=== PATIENT | male | born 1970 | race Caucasian/White ===

== ENCOUNTER 2022-03-02 07:06 | Day surgery (SDC) | payer BC ==
[2022-02-28 10:01] VITALS: BMI 45.1
[2022-03-02] MEDS ORDERED: PROMETHAZINE HCL 25 MG/1 ML VIAL IVPUSH PRN (07:27)
[2022-03-02] MEDS ORDERED: oxyCODONE HCL 5 MG TABLET PO PRN (07:27)
[2022-03-02] MEDS ORDERED: ONDANSETRON 4 MG/2 ML VIAL IVPUSH PRN (07:27)
[2022-03-02] MEDS ORDERED: LACTATED RINGERS SOLUTION 1,000 ML IV SCH (07:30)
[2022-03-02] MEDS ORDERED: MIDAZOLAM HCL 2 MG/2 ML SINGLE DOSE VIAL ONE (08:26)
[2022-03-02] MEDS ORDERED: PROPOFOL 20 ML ONE (08:26)
[2022-03-02] MEDS ORDERED: LIDOCAINE HCL/PF 2% SDV 5ML VIAL ONE (08:29)
[2022-03-02] MEDS ORDERED: SODIUM CHLORIDE 0.9% P/F 10 ML VIAL IJ ONE (08:29)
[2022-03-02] MEDS ORDERED: BUPIVACAINE HCL/PF 2.5 MG/ML - 30 ML VIAL IJ ONE (08:29)
[2022-03-02] MEDS ORDERED: ceFAZolin SODIUM 1 GM VIAL ONE (08:29)
[2022-03-02] MEDS ORDERED: GLYCOPYRROLATE 0.2 MG/1 ML VIAL ONE (08:29)
[2022-03-02] MEDS ORDERED: ACETAMINOPHEN 1000 MG/100 ML BAG IVPB ONE (08:33)
[2022-03-02] MEDS ORDERED: ONDANSETRON 4 MG/2 ML VIAL ONE (08:55)
[2022-03-02] MEDS ORDERED: KETOROLAC TROMETHAMINE 30 MG/1 ML VIAL ONE (08:55)
[2022-03-02] MEDS ORDERED: DEXAMETHASONE SOD PHOSPHATE 4 MG/1 ML VIAL ONE (08:55)
[2022-03-02] MEDS ORDERED: ACETAMINOPHEN INJECTION 100 ML IVPB ONE (09:51)
[2022-03-02 10:59] VITALS: TEMP 97.8
[2022-03-02 11:50] VITALS: BP 133/83; PULSE 87
[2022-03-02] MEDS ORDERED: oxyCODONE HCL 5 MG TABLET PO ONE (12:00)
== END 2022-03-02 10:30 | disposition home or self-care (01) ==
LOC: FASU 07:06
PROVIDERS: ATTEND Orthopaedic Surgery
PROC: 0SBC4ZZ Excision of Right Knee Joint, Percutaneous Endoscopic Approach (ICD-10-PCS; principal; 2022-03-02 09:02)
DX: S83.241A Other tear of medial meniscus, current injury, right knee, initial encounter (principal); S83.8X1A Sprain of other specified parts of right knee, initial encounter; M65.861 Other synovitis and tenosynovitis, right lower leg; X58.XXXA Exposure to other specified factors, initial encounter; Y93.9 Activity, unspecified; Y92.9 Unspecified place or not applicable
CPT/HCPCS: 82962; 94760